=== PATIENT | female | born 2000 | race Caucasian/White ===

== ENCOUNTER 2021-05-27 16:16 | Emergency (ER) | payer SELFPAY ==
[2021-05-27 16:27] VITALS: BP 132/84; PULSE 115; RESP 16; TEMP 36.9; O2SAT 100
--- NOTE | 2021-05-27 16:29 | ED.URI ---
HPI - URI/Sore Throat General Chief Complaint: Upper Respiratory Infection Stated Complaint: Sore throat, ear pain Time Seen by Provider: 05/27/21 16:29 Source: patient Mode of arrival: ambulatory Limitations: no limitations History of Present Illness HPI Narrative: 20 yo F presents with c/o throat and bilateral ear pain, dry nares for 3 days. afebrile. hx of ear infections as a child. throat pain worse when swallowing. no strep exposure. no other complaints today. All systems reviewed and negative except as noted above. Related Data Home Medications Medication Instructions Recorded Confirmed sertraline mg 05/27/21 Allergies Allergy/AdvReac Type Severity Reaction Status Date / Time No Known Allergies Allergy Unverified 04/20/13 18:12 Review of Systems Review of Systems: CONSTITUTIONAL: Denies fever, chills, or sweats. EYES: Denies visual changes, redness, or discharge. ENT: Denies rhinorrhea, congestion. reports sore throat and otalgia. CARDIOVASCULAR: Denies chest pain, palpitations, or edema. RESPIRATORY: Denies cough or dyspnea. GASTROINTESTINAL: Denies abdominal pain, nausea, vomiting, or diarrhea. GENITOURINARY: Denies dysuria or hematuria. SKIN: Denies rash or itching. MUSCULOSKELETAL: Denies back pain, joint pain, or myalgia. NEUROLOGIC: Denies headache, numbness, or weakness. PSYCHIATRIC: Denies anxiety or depression. All other systems reviewed are negative, except as documented in HPI. PMFSH Comments At time of signature, agree with nursing past medical, surgical, social and family history. There is no relevant family history pertinent to the presenting complaint. Exam Narrative: GENERAL: This is a well-nourished, well-developed patient, in no apparent distress. HEAD: normocephalic, atraumatic. EYES: PERRL. Sclera clear/white. Vision is grossly intact. EARS: External ears normal, auditory canals clear and without drainage. Fluid noted to bilateral TMs, no erythema. Hearing grossly intact. NOSE: External nose normal with no obvious nasal discharge, nares without redness, no rhinorrhea. THROAT: Mucous membranes moist, posterior pharynx clear. Erythema to posterior pharynx, tonsil stone noted to left tonsil. NECK: Neck supple, non-tender without lymphadenopathy, masses or thyromegaly. CARDIOVASCULAR: Regular rate and rhythm without murmurs, gallops, or rubs. RESPIRATORY: Clear to auscultation. Breath sounds equal bilaterally. No wheezes, rales, or rhonchi. GASTROINTESTINAL: Abdomen soft, non-tender, nondistended. Bowel sounds are active. No hepato-splenomegaly, or palpable masses. No guarding. SKIN: warm, Dry, intact with no suspicious lesions or rash, good texture and turgor. NEURO: awake, alert, and oriented to person, place and time. There were no obvious focal neurologic abnormalities. EXTREMITIES: No joint tenderness, effusion, or edema noted. No calf tenderness. Negative Homans sign bilaterally. BACK: Nontender without deformity. No CVA tenderness. Course Course Level of Care: Express Care Visit Vital Signs Vital signs: Vital Signs Temperature 36.9 C 05/27/21 16:27 Pulse Rate 115 H 05/27/21 16:27 Respiratory Rate 16 05/27/21 16:27 Blood Pressure 132/84 05/27/21 16:27 Pulse Oximetry 100 05/27/21 16:27 Temperature 36.9 C 05/27/21 16:27 Pulse Rate 115 H 05/27/21 16:27 Respiratory Rate 16 05/27/21 16:27 Blood Pressure 132/84 05/27/21 16:27 Pulse Oximetry 100 05/27/21 16:27 Reviewed MDM - URI/Sore Throat MDM Narrative Medical decision making narrative: Patient is aware of diagnosis, understands and agrees to treatment plan. Anticipatory guidance given. Patient agrees to follow-up as directed and is aware of reasons to seek care at the emergency department. Portions of this record may have been created with voice recognition software Discharge Plan Discharge Clinical Impression: Acute serous otitis media, bilateral Qualifiers: Recurrence: not specified
== END 2021-05-27 16:55 | disposition home or self-care (01) ==
PROVIDERS: Emergency Provider Nurse Practitioner Family
DX: H65.03 Acute serous otitis media, bilateral (principal)
CPT/HCPCS: 87081; 87880; 99203; G0463

== ENCOUNTER 2025-01-21 14:00 | Outpatient (RCR) | payer OTHER, SELFPAY ==
--- NOTE | 2024-11-14 13:52 | PCPTNOTE ---
pt no showed IE this date, called and left VM to call back to schedule -SH
--- NOTE | 2024-12-20 11:51 | OPREHPOC ---
Outpatient Therapy Plan of Care This is a Multidisciplinary Plan of Care that may contain components documented by all disciplines (PT, OT, and ST.) PT Problem 1 PT Problem #1 Knowledge Deficit PT Goal 1 Goal / Goal Update Dickens with HEP Target Visit 4 PT Goal 2 Goal / Goal Update Report no knee pain greater than 2/10 with activity Target Visit 4 PT Problem 2 PT Problem #2 Impaired Strength PT Goal 1 Goal / Goal Update 1. Improve lower abdominal strength to 4/5 to improve lumbar stabilization with functional activity 2. Improve leno hip abduction strength to 4+5 to improve lateral stability of pelvis during ADLs Target Visit 8 PT Problem 3 PT Problem #3 Impaired Functional Mobility PT Goal 1 Goal / Goal Update Demonstrate ability to perform proper squat technique without genu valgus to promote proper knee tracking Target Visit 8
--- NOTE | 2024-12-20 11:51 | PTOPEVAL1 ---
Assessment and note entered by Luis Chapman, PT Evaluation Information Assessment Status Evaluation ICD-10 Condition Codes (PT) Cervicalgia M54.2,Pain in right knee M25.561,Pain in left knee M25.562 Onset 5 years Subjective Information Reports that her leno knees and hips hurt worse based on activity and weather. There is a definite tie to activity. She has history of right knee subluxation and she has had to be cautious. She was never treated for this previously. Feels a lot of instability in her knees, more on the right with history of trauma. She has also rolled her ankles a lot. She is mostly stationary at this time. History of sacral issues as well dating back to high school. Reported Pain Level Pain Score 2: Self Report Assessment PT Clinical Summary Patient presents with stability deficits of lumbar spine and hip. No mobility deficits noted, but she has difficulty with disassociation of hip mobility from core leading to increased hip and knee straining. Patient will benefit form skilled therapy to address core stabilization and lateral hip stability to reduce stress on knee and spinal complex. Plan of Care Interventions Electrical Stimulation,Manual Therapy,Neuro Re- education,Therapeutic Activities,Therapeutic Exercise PT Services Indicated Yes Treatment Frequency and 2x/week for 8 visits Duration These treatments will address the objective and functional deficits as defined above. The patient will be advanced safely and appropriately in order for the patient to progress towards his/her prior level of function. Additional exercises will be introduced and as well as a comprehensive home exercise program upon discharge, if needed, ?to ensure carryover of functional gains achieved in the clinic. This treatment plan has been reviewed and agreement upon by the patient.
--- NOTE | 2025-01-03 13:16 | PCPTNOTE ---
Pt cancelled, not feeling well. per front office. AKS
--- NOTE | 2025-01-03 14:11 | PCPTNOTE ---
Wrong information given. This pt did receive PT today. AKS
--- NOTE | 2025-01-21 14:41 | PTOPDC ---
Assessment and note entered by Luis Chapman, PT Evaluation Information Assessment Status Discharge ICD-10 Condition Codes (PT) Cervicalgia M54.2,Pain in right knee M25.561,Pain in left knee M25.562 Onset 5 years Subjective Information Reports that overall she is doing really well with everything. Has not had too many issues with knee pain at this point. Feels comfortable with all of her exercises. Reported Pain Level Pain Score 1: Self Report Assessment PT Clinical Summary Patient has met all goals for therapy and is suitable for discharge at this time to [facility]. Denies any functional disability at this time. Plan of Care PT Services Indicated Yes
== END 2025-01-21 16:06 | disposition home or self-care (01) ==
LOC: ANHPT 14:00
PROVIDERS: PCP Nurse Practitioner; Visit Provider Nurse Practitioner
DX: M25.561 Pain in right knee (principal); M25.562 Pain in left knee; M79.641 Pain in right hand; M79.642 Pain in left hand; M54.2 Cervicalgia; G89.29 Other chronic pain
CPT/HCPCS: 97110; 97112; 97140; 97161; 97530